=== PATIENT | male | born 1970 | race Caucasian/White ===

== ENCOUNTER 2023-05-24 23:15 | Emergency (ER) | payer OTHER ==
[~2023-05-24] VITALS: Ht 182.9 cm; Wt 113.4 kg
[2023-05-24 23:52] VITALS: BP 127/73; PULSE 92; RESP 17; TEMP 98; O2SAT 96
[2023-05-25] MEDS ORDERED: ONDANSETRON 4 MG/2 ML VIAL IVP ONE (02:50)
[2023-05-25] MEDS ORDERED: HYDROmorphone 1 MG/ML AMP IVP ONE (02:50)
[2023-05-25 03:05] LABS: BASOPHILS # (AUTO) 0.2 K/uL (0.00-0.22); BASOPHILS % (AUTO) 1.5 % (0.0-2.0); EOSINOPHILS # (AUTO) 0.3 K/uL (0-0.4); EOSINOPHILS % (AUTO) 2.1 % (0.0-4.0); HEMATOCRIT 43.4 % (36-52); HEMOGLOBIN 14.3 g/dL (12.0-18.0); LYMPHOCYTES # (AUTO) 2.3 K/uL (2.0-11.5); LYMPHOCYTES % (AUTO) 15.5 % (20.5-51.1); MEAN CORPUSCULAR HEMOGLOBIN 30 pg (27-31); MEAN CORPUSCULAR HGB CONC 33 g/dL (33-37); MEAN CORPUSCULAR VOLUME 90.3 fL (80-94); MONOCYTES # (AUTO) 0.9 K/uL (0.8-1.0); MONOCYTES % (AUTO) 5.9 % (1.7-9.3); PLATELET COUNT (AUTO) 240 K/uL (140-450); RED BLOOD CELL COUNT(AUTO) 4.81 MIL/uL (4.20-6.10); RED CELL DISTRIBUTION WIDTH 15.2 % (11.6-13.7); WHITE BLOOD COUNT (AUTO) 14.7 K/uL (4.8-10.8)
[2023-05-25 03:21] LABS: ANION GAP 14.7 (8-16); CALCIUM 9.1 mg/dL (8.5-10.1); CARBON DIOXIDE 25.9 mmol/L (21-32); POTASSIUM 3.6 mmol/L (3.5-5.1)
[2023-05-25 03:27] LABS: ALBUMIN 3.3 g/dL (3.4-5.0); BILIRUBIN,DIRECT 0.1 mg/dL (0.0-0.3); TOTAL BILIRUBIN 0.4 mg/dL (0.0-1.0); TOTAL PROTEIN, SERUM 8.4 g/dL (6.4-8.2)
[2023-05-25 05:57] VITALS: BP 134/72; PULSE 82; RESP 16; TEMP 97.4; O2SAT 98
[2023-05-25 07:02] LABS: APPEARANCE,URINE CLEAR (CLEAR); BILIRUBIN,URINE NEGATIVE (NEGATIVE); BLOOD, URINE TRACE-I (NEGATIVE); COLOR,URINE YELLOW (YELLOW); LEUKOCYTE ESTERASE ,URINE NEGATIVE (NEGATIVE); NITRITE, URINE NEGATIVE (NEGATIVE); PROTEIN,URINE 2+ (NEGATIVE); UGLUCOSE 3+ (NEGATIVE); UROBILINOGEN,URINE 0.2 EU/dL (0.2 - 1)
[2023-05-25] MEDS ORDERED: DOCU-299 PO (07:15)
[2023-05-25] MEDS ORDERED: ONDA-188 PO (07:15)
[2023-05-25] MEDS ORDERED: ACET-8905 PO (07:15)
[2023-05-25 07:20] LABS: BACTERIA,URINE 0-2 /HPF (None Seen); RBC,URINE 0-5 /HPF (0-5); SQUAMOUS EPITHELIAL CELL,UR 0-3 (FEW) /LPF (0-3 (FEW)); WBC,URINE 0-5 /HPF (0-5)
== END 2023-05-25 07:31 | disposition home or self-care (01) ==
LOC: MED 23:15
DX: R10.33 Periumbilical pain (principal); R11.2 Nausea with vomiting, unspecified; K59.00 Constipation, unspecified; R60.0 Localized edema; E11.9 Type 2 diabetes mellitus without complications; I10 Essential (primary) hypertension; Z98.890 Other specified postprocedural states; Z87.448 Personal history of other diseases of urinary system; Z79.899 Other long term (current) drug therapy
CPT/HCPCS: 36415; 74176; 80048; 80076; 81001; 82948; 83690; 85025; 96374; 96375; 99285; J1170; J2405

== ENCOUNTER 2023-06-01 06:29 | Inpatient (IN) | payer OTHER ==
[~2023-06-01] VITALS: Ht 182.9 cm; Wt 113.4 kg
[~2023-06-01 06:29] MED LIST: ACET-8905 PO; DOCU-299 PO; ONDA-188 PO
[2023-06-01 07:13] VITALS: BP 111/66; PULSE 85; RESP 16; TEMP 97.5; O2SAT 97
[2023-06-01] MEDS: PIPERACILLIN/TAZOBACTAM 3.375 GM in DEXT 5% MINI-BAG PLUS 50 ML IV ONE (09:40)
[2023-06-01 10:02] LABS: BASOPHILS # (AUTO) 0.2 K/uL (0.00-0.22); BASOPHILS % (AUTO) 1.5 % (0.0-2.0); EOSINOPHILS # (AUTO) 0.6 K/uL (0-0.4); EOSINOPHILS % (AUTO) 3.9 % (0.0-4.0); HEMATOCRIT 44.3 % (36-52); HEMOGLOBIN 14.6 g/dL (12.0-18.0); LYMPHOCYTES # (AUTO) 2.4 K/uL (2.0-11.5); LYMPHOCYTES % (AUTO) 17.2 % (20.5-51.1); MEAN CORPUSCULAR HEMOGLOBIN 30 pg (27-31); MEAN CORPUSCULAR HGB CONC 33 g/dL (33-37); MONOCYTES # (AUTO) 0.9 K/uL (0.8-1.0); MONOCYTES % (AUTO) 6.3 % (1.7-9.3); NEUTROPHILS # (AUTO) 10.1 K/uL (1.8-7.7); NEUTROPHILS % (AUTO) 71.1 % (42.2-75.2); PLATELET COUNT (AUTO) 210 K/uL (140-450); RED BLOOD CELL COUNT(AUTO) 4.86 MIL/uL (4.20-6.10); RED CELL DISTRIBUTION WIDTH 15.1 % (11.6-13.7); WHITE BLOOD COUNT (AUTO) 14.2 K/uL (4.8-10.8)
[2023-06-01 10:15] LABS: ANION GAP 15.2 (8-16); CALCIUM 9.3 mg/dL (8.5-10.1); POTASSIUM 4.2 mmol/L (3.5-5.1)
[2023-06-01 10:21] LABS: ALBUMIN 3.4 g/dL (3.4-5.0); BILIRUBIN,DIRECT 0.1 mg/dL (0.0-0.3); TOTAL BILIRUBIN 0.6 mg/dL (0.0-1.0); TOTAL PROTEIN, SERUM 8.4 g/dL (6.4-8.2)
[2023-06-01 10:23] LABS: LACTIC ACID 0.9 mmol/L (0.4-2.0)
[2023-06-01] MEDS ORDERED: PIPERACILLIN/TAZOBACTAM 3.375 GM VIAL IV ONE (10:32)
[2023-06-01] MEDS: HYDROcodone/APAP 10/325 MG 1 TAB TAB PO STA (10:50)
[2023-06-01] MEDS: NACL 0.9% 1,000 ML IV SCH (11:10)
[2023-06-01] MEDS ORDERED: ACETAMINOPHEN 325 MG TAB PO PRN (11:10)
[2023-06-01] MEDS ORDERED: DEXTROSE 50% 50 ML SYR IVP PRN (11:15)
[2023-06-01] MEDS: ONDANSETRON 4 MG/2 ML VIAL IVP ONE (12:14)
[2023-06-01] MEDS: BLOOD GLUCOSE MONITORING 1 DEV DEV FS SCH (12:16)
[2023-06-01 13:50] LABS: APPEARANCE,URINE CLEAR (CLEAR); BILIRUBIN,URINE NEGATIVE (NEGATIVE); BLOOD, URINE TRACE-I (NEGATIVE); COLOR,URINE YELLOW (YELLOW); LEUKOCYTE ESTERASE ,URINE NEGATIVE (NEGATIVE); NITRITE, URINE NEGATIVE (NEGATIVE); PROTEIN,URINE 1+ (NEGATIVE); UGLUCOSE 3+ (NEGATIVE); UROBILINOGEN,URINE 0.2 EU/dL (0.2 - 1)
[2023-06-01 14:10] LABS: BACTERIA,URINE 0-2 /HPF (None Seen); MUCUS,URINE 1+ /LPF (None Seen); RBC,URINE 0-5 /HPF (0-5); SQUAMOUS EPITHELIAL CELL,UR 0-3 (FEW) /LPF (0-3 (FEW)); WBC,URINE 0-5 /HPF (0-5)
[2023-06-01] MEDS: INSULIN LISPRO SLIDING SCALE 100 UNITS/ML VIAL SUBQ PRN (16:56)
[2023-06-01] MEDS ORDERED: VANCOMYCIN PER PHARMACY MC PRN (20:20)
[2023-06-01 21:35] VITALS: PULSE 83; RESP 20; O2SAT 95
[2023-06-01] MEDS: LACTULOSE 20 GM/30 ML UDC PO SCH (22:43)
[2023-06-01] MEDS: DOCUSATE SODIUM 250 MG GELCAP PO SCH (22:44)
[2023-06-01] MEDS: MORPHINE SULFATE 4 MG/ML SYR IVP PRN (22:48)
[2023-06-02] MEDS: ONDANSETRON 4 MG/2 ML VIAL IVP PRN (04:45)
[2023-06-02 05:26] LABS: BASOPHILS # (AUTO) 0.1 K/uL (0.00-0.22); BASOPHILS % (AUTO) 1.1 % (0.0-2.0); EOSINOPHILS # (AUTO) 0.4 K/uL (0-0.4); EOSINOPHILS % (AUTO) 3.7 % (0.0-4.0); HEMOGLOBIN 13.5 g/dL (12.0-18.0); LYMPHOCYTES # (AUTO) 1.9 K/uL (2.0-11.5); LYMPHOCYTES % (AUTO) 16.5 % (20.5-51.1); MEAN CORPUSCULAR HEMOGLOBIN 30 pg (27-31); MEAN CORPUSCULAR HGB CONC 33 g/dL (33-37); MEAN CORPUSCULAR VOLUME 91.3 fL (80-94); MONOCYTES # (AUTO) 0.8 K/uL (0.8-1.0); NEUTROPHILS # (AUTO) 8.1 K/uL (1.8-7.7); NEUTROPHILS % (AUTO) 71.7 % (42.2-75.2); PLATELET COUNT (AUTO) 170 K/uL (140-450); RED BLOOD CELL COUNT(AUTO) 4.49 MIL/uL (4.20-6.10); RED CELL DISTRIBUTION WIDTH 15.1 % (11.6-13.7); WHITE BLOOD COUNT (AUTO) 11.3 K/uL (4.8-10.8)
[2023-06-02 06:12] LABS: ALBUMIN 3.1 g/dL (3.4-5.0); ANION GAP 15.4 (8-16); CARBON DIOXIDE 24.7 mmol/L (21-32); CREATININE 3.6 mg/dL (0.6-1.3); POTASSIUM 4.1 mmol/L (3.5-5.1); TOTAL BILIRUBIN 0.7 mg/dL (0.0-1.0)
[2023-06-02] MEDS: VANCOMYCIN 1.25GM PREMIX 250 ML IV SCH (09:17)
[2023-06-02 09:40] VITALS: BP 110/61; PULSE 88; RESP 19; TEMP 96.7; O2SAT 95
[2023-06-02 09:43] VITALS: PULSE 88; RESP 19; O2SAT 95
[2023-06-02] MEDS: CRUSHER, PILL MC ONE (09:56)
[2023-06-02] MEDS ORDERED: GAUZE TP PRN (10:05)
[2023-06-02] MEDS: GAUZE TP SCH (10:29)
[2023-06-02] MEDS: HYDROcodone/APAP 5/325 MG 1 TAB TAB PO PRN (11:28)
[2023-06-02 16:00] VITALS: BP 112/68; PULSE 72; RESP 19; TEMP 97; O2SAT 96
[2023-06-02 20:00] VITALS: BP 122/66; PULSE 76; RESP 18; TEMP 98; O2SAT 96
[2023-06-03 04:00] VITALS: BP 111/60; PULSE 66; RESP 18; TEMP 98.1; O2SAT 95
[2023-06-03 07:04] LABS: BASOPHILS # (AUTO) 0.2 K/uL (0.00-0.22); BASOPHILS % (AUTO) 1.8 % (0.0-2.0); EOSINOPHILS # (AUTO) 0.4 K/uL (0-0.4); EOSINOPHILS % (AUTO) 4.5 % (0.0-4.0); HEMATOCRIT 38.4 % (36-52); HEMOGLOBIN 12.9 g/dL (12.0-18.0); LYMPHOCYTES % (AUTO) 21.6 % (20.5-51.1); MEAN CORPUSCULAR HEMOGLOBIN 30 pg (27-31); MEAN CORPUSCULAR HGB CONC 34 g/dL (33-37); MEAN CORPUSCULAR VOLUME 90.3 fL (80-94); MONOCYTES # (AUTO) 0.6 K/uL (0.8-1.0); MONOCYTES % (AUTO) 6.6 % (1.7-9.3); NEUTROPHILS # (AUTO) 6.2 K/uL (1.8-7.7); NEUTROPHILS % (AUTO) 65.5 % (42.2-75.2); PLATELET COUNT (AUTO) 172 K/uL (140-450); RED BLOOD CELL COUNT(AUTO) 4.25 MIL/uL (4.20-6.10); WHITE BLOOD COUNT (AUTO) 9.4 K/uL (4.8-10.8)
[2023-06-03 07:28] LABS: ANION GAP 14.4 (8-16); CARBON DIOXIDE 27.6 mmol/L (21-32); CREATININE 3.5 mg/dL (0.6-1.3)
[2023-06-03 08:00] VITALS: BP 120/74; PULSE 86; RESP 18; TEMP 97.1; O2SAT 96
[2023-06-03] MEDS: TAMSULOSIN 0.4 MG CAP PO SCH (09:25)
[2023-06-03] MEDS: VANCOMYCIN 1,000 MG in DEXTROSE 5% 250 ML IV SCH (13:06)
[2023-06-03 20:00] VITALS: BP 121/67; PULSE 76; RESP 20; TEMP 97.4; O2SAT 96
[2023-06-04] MEDS: cefTRIAXone 1,000 MG VIAL ONE (00:55)
[2023-06-04 04:00] VITALS: BP 116/70; PULSE 76; RESP 18; TEMP 97.1; O2SAT 97
[2023-06-04 06:11] LABS: BASOPHILS # (AUTO) 0.1 K/uL (0.00-0.22); BASOPHILS % (AUTO) 1.2 % (0.0-2.0); EOSINOPHILS # (AUTO) 0.3 K/uL (0-0.4); HEMATOCRIT 38.3 % (36-52); HEMOGLOBIN 12.8 g/dL (12.0-18.0); LYMPHOCYTES # (AUTO) 1.3 K/uL (2.0-11.5); LYMPHOCYTES % (AUTO) 12.4 % (20.5-51.1); MEAN CORPUSCULAR HEMOGLOBIN 30 pg (27-31); MEAN CORPUSCULAR HGB CONC 33 g/dL (33-37); MEAN CORPUSCULAR VOLUME 90.7 fL (80-94); MONOCYTES # (AUTO) 0.6 K/uL (0.8-1.0); MONOCYTES % (AUTO) 5.8 % (1.7-9.3); NEUTROPHILS # (AUTO) 8.3 K/uL (1.8-7.7); NEUTROPHILS % (AUTO) 77.6 % (42.2-75.2); PLATELET COUNT (AUTO) 182 K/uL (140-450); RED BLOOD CELL COUNT(AUTO) 4.22 MIL/uL (4.20-6.10); RED CELL DISTRIBUTION WIDTH 14.8 % (11.6-13.7); WHITE BLOOD COUNT (AUTO) 10.7 K/uL (4.8-10.8)
[2023-06-04 06:39] LABS: ANION GAP 14.6 (8-16); CARBON DIOXIDE 26.5 mmol/L (21-32); CREATININE 3.3 mg/dL (0.6-1.3); POTASSIUM 4.1 mmol/L (3.5-5.1)
[2023-06-04 08:48] VITALS: BP 126/72; PULSE 97; RESP 18; TEMP 97.7; O2SAT 97
[2023-06-04 08:53] VITALS: PULSE 97; RESP 18; O2SAT 97
[2023-06-04] MEDS: VANCOMYCIN 1.25GM PREMIX 250 ML IV SCH (11:08)
[2023-06-04] MEDS ORDERED: ACET-9525 PO (13:01)
[2023-06-04 14:13] VITALS: BP 128/73; PULSE 100; RESP 17; TEMP 98; O2SAT 98
[2023-06-04] MEDS: METOCLOPRAMIDE 10 MG/2 ML INJ VIAL IVP SCH (16:45)
[2023-06-04 20:00] VITALS: BP 123/81; PULSE 82; RESP 18; TEMP 97; O2SAT 96
[2023-06-05 04:00] VITALS: BP 152/90; PULSE 89; RESP 18; TEMP 98; O2SAT 94
[2023-06-05 07:25] LABS: MAGNESIUM 2.8 mg/dL (1.8-2.4)
[2023-06-05 07:40] LABS: ANION GAP 16.4 (8-16); CALCIUM 9.5 mg/dL (8.5-10.1); CARBON DIOXIDE 25.4 mmol/L (21-32); POTASSIUM 3.8 mmol/L (3.5-5.1)
[2023-06-05 08:00] VITALS: PULSE 89; RESP 17; O2SAT 96
[2023-06-05 12:00] VITALS: BP 107/44; PULSE 89; RESP 17; TEMP 97.1; O2SAT 96
[2023-06-05 20:00] VITALS: BP 130/68; PULSE 85; RESP 18; TEMP 97.3; O2SAT 95
[2023-06-06 04:00] VITALS: BP 124/74; PULSE 90; RESP 18; TEMP 97.9; O2SAT 94
[2023-06-06 05:59] LABS: BASOPHILS # (AUTO) 0.2 K/uL (0.00-0.22); BASOPHILS % (AUTO) 1.5 % (0.0-2.0); EOSINOPHILS # (AUTO) 0.4 K/uL (0-0.4); EOSINOPHILS % (AUTO) 3.6 % (0.0-4.0); HEMATOCRIT 39.1 % (36-52); HEMOGLOBIN 12.8 g/dL (12.0-18.0); LYMPHOCYTES # (AUTO) 1.8 K/uL (2.0-11.5); LYMPHOCYTES % (AUTO) 17.2 % (20.5-51.1); MEAN CORPUSCULAR HEMOGLOBIN 30 pg (27-31); MEAN CORPUSCULAR HGB CONC 33 g/dL (33-37); MEAN CORPUSCULAR VOLUME 91.7 fL (80-94); MONOCYTES # (AUTO) 0.8 K/uL (0.8-1.0); MONOCYTES % (AUTO) 7.9 % (1.7-9.3); NEUTROPHILS # (AUTO) 7.2 K/uL (1.8-7.7); NEUTROPHILS % (AUTO) 69.8 % (42.2-75.2); PLATELET COUNT (AUTO) 183 K/uL (140-450); RED BLOOD CELL COUNT(AUTO) 4.27 MIL/uL (4.20-6.10); RED CELL DISTRIBUTION WIDTH 14.9 % (11.6-13.7); WHITE BLOOD COUNT (AUTO) 10.3 K/uL (4.8-10.8)
[2023-06-06 08:00] VITALS: PULSE 89; RESP 17; O2SAT 93
[2023-06-06 08:34] LABS: ANION GAP 15.9 (8-16); CALCIUM 9.3 mg/dL (8.5-10.1); CARBON DIOXIDE 23.2 mmol/L (21-32); CREATININE 2.9 mg/dL (0.6-1.3); POTASSIUM 4.1 mmol/L (3.5-5.1)
[2023-06-06] MEDS ORDERED: VANCOMYCIN PER PHARMACY MC PRN (08:40)
[2023-06-06 12:00] VITALS: BP 123/61; PULSE 89; RESP 17; TEMP 97.8; O2SAT 93
[2023-06-06] MEDS: VANCOMYCIN 1.25GM PREMIX 250 ML IV SCH (12:47)
[2023-06-06 20:00] VITALS: BP 112/54; PULSE 82; RESP 18; TEMP 96.7; O2SAT 95
[2023-06-07 04:00] VITALS: BP 137/76; PULSE 94; RESP 18; TEMP 96.6; O2SAT 94
[2023-06-07 06:32] LABS: ANION GAP 15.2 (8-16); CARBON DIOXIDE 23.7 mmol/L (21-32); CREATININE 2.8 mg/dL (0.6-1.3); POTASSIUM 3.9 mmol/L (3.5-5.1)
[2023-06-07 08:00] VITALS: BP 120/75; PULSE 81; PULSE 82; RESP 18; TEMP 96.4; O2SAT 95; O2SAT 97
[2023-06-07 08:51] LABS: BASOPHILS # (AUTO) 0.2 K/uL (0.00-0.22); BASOPHILS % (AUTO) 1.8 % (0.0-2.0); EOSINOPHILS # (AUTO) 0.4 K/uL (0-0.4); EOSINOPHILS % (AUTO) 4.1 % (0.0-4.0); HEMATOCRIT 37.5 % (36-52); HEMOGLOBIN 12.3 g/dL (12.0-18.0); LYMPHOCYTES # (AUTO) 1.6 K/uL (2.0-11.5); LYMPHOCYTES % (AUTO) 17.1 % (20.5-51.1); MEAN CORPUSCULAR HEMOGLOBIN 30 pg (27-31); MEAN CORPUSCULAR HGB CONC 33 g/dL (33-37); MEAN CORPUSCULAR VOLUME 91.6 fL (80-94); MONOCYTES # (AUTO) 0.8 K/uL (0.8-1.0); MONOCYTES % (AUTO) 9.1 % (1.7-9.3); NEUTROPHILS # (AUTO) 6.3 K/uL (1.8-7.7); NEUTROPHILS % (AUTO) 67.9 % (42.2-75.2); PLATELET COUNT (AUTO) 184 K/uL (140-450); RED BLOOD CELL COUNT(AUTO) 4.09 MIL/uL (4.20-6.10); WHITE BLOOD COUNT (AUTO) 9.3 K/uL (4.8-10.8)
[2023-06-07] MEDS: SENNA 8.6 MG TAB PO SCH (12:18)
[2023-06-07] MEDS: ERYTHROMYCIN 100 MG in NACL 0.9% 100 ML IV SCH (12:19)
[2023-06-07 12:56] LABS: INR 1.03 (0.8-1.2); PARTIAL THROMBOPLASTIN TIME 28.4 secs (22-35.6); PROTHROMBIN TIME 10.8 secs (10.8-13.4)
[2023-06-07] MEDS: LACTULOSE 20 GM/30 ML UDC PO SCH (13:00)
[2023-06-07 16:01] VITALS: O2SAT 98
[2023-06-07 20:00] VITALS: BP 131/68; PULSE 77; RESP 18; TEMP 97.6; O2SAT 98
[2023-06-08 04:00] VITALS: BP 141/68; PULSE 86; RESP 18; TEMP 97.2; O2SAT 98
[2023-06-08 06:11] LABS: BASOPHILS # (AUTO) 0.1 K/uL (0.00-0.22); BASOPHILS % (AUTO) 1.5 % (0.0-2.0); EOSINOPHILS # (AUTO) 0.5 K/uL (0-0.4); EOSINOPHILS % (AUTO) 5.9 % (0.0-4.0); HEMATOCRIT 38.8 % (36-52); HEMOGLOBIN 12.9 g/dL (12.0-18.0); LYMPHOCYTES # (AUTO) 1.3 K/uL (2.0-11.5); MEAN CORPUSCULAR HEMOGLOBIN 30 pg (27-31); MEAN CORPUSCULAR HGB CONC 33 g/dL (33-37); MEAN CORPUSCULAR VOLUME 90.2 fL (80-94); MONOCYTES # (AUTO) 0.6 K/uL (0.8-1.0); MONOCYTES % (AUTO) 7.6 % (1.7-9.3); NEUTROPHILS # (AUTO) 5.4 K/uL (1.8-7.7); PLATELET COUNT (AUTO) 201 K/uL (140-450); RED CELL DISTRIBUTION WIDTH 14.9 % (11.6-13.7); WHITE BLOOD COUNT (AUTO) 7.9 K/uL (4.8-10.8)
[2023-06-08 06:29] LABS: ANION GAP 12.6 (8-16); CALCIUM 9.1 mg/dL (8.5-10.1); CARBON DIOXIDE 26.6 mmol/L (21-32); CREATININE 2.3 mg/dL (0.6-1.3); POTASSIUM 4.2 mmol/L (3.5-5.1)
[2023-06-08] MEDS: fentaNYL citrate 0.05 MG/ML VIAL ONE (07:38)
[2023-06-08] MEDS: diphenhydrAMINE 50 MG/ML VIAL ONE (07:38)
[2023-06-08] MEDS: MIDAZOLAM 2 MG/2 ML VIAL ONE (07:39)
[2023-06-08 08:00] VITALS: PULSE 85; RESP 18; O2SAT 97
[2023-06-08] MEDS: MIDAZOLAM 2 MG/2 ML VIAL IVP ONE (08:54)
[2023-06-08] MEDS: fentaNYL citrate 0.05 MG/ML VIAL IVP ONE (08:55)
[2023-06-08] MEDS: VANCOMYCIN 1,000 MG in DEXTROSE 5% 250 ML IV SCH (11:06)
[2023-06-08 16:00] VITALS: BP 121/53; PULSE 85; RESP 18; TEMP 97.6; O2SAT 97
[2023-06-08 21:01] VITALS: BP 121/53; PULSE 85; RESP 18; TEMP 97.6
== END 2023-06-08 22:00 | disposition home health service (06) | DRG 344 ==
LOC: MED 06:29 → MTU 11:11
PROVIDERS: ADMIT Internal Medicine; ATTEND Internal Medicine
PROC: B548ZZA Ultrasonography of Superior Vena Cava, Guidance (ICD-10-PCS; 2023-06-08)
PROC: 0DJ08ZZ Inspection of Upper Intestinal Tract, Via Natural or Artificial Opening Endoscopic (ICD-10-PCS; principal; 2023-06-08 08:00)
PROC: 02HV33Z Insertion of Infusion Device into Superior Vena Cava, Percutaneous Approach (ICD-10-PCS; 2023-06-08 08:00)
DX: E11.69 Type 2 diabetes mellitus with other specified complication (principal); M86.8X7 Other osteomyelitis, ankle and foot; N17.0 Acute kidney failure with tubular necrosis; R65.11 Systemic inflammatory response syndrome (SIRS) of non-infectious origin with acute organ dysfunction; E11.621 Type 2 diabetes mellitus with foot ulcer; E27.8 Other specified disorders of adrenal gland; I13.0 Hypertensive heart and chronic kidney disease with heart failure and stage 1 through stage 4 chronic kidney disease, or unspecified chronic kidney disease; L97.419 Non-pressure chronic ulcer of right heel and midfoot with unspecified severity; I50.9 Heart failure, unspecified; N18.4 Chronic kidney disease, stage 4 (severe); N13.30 Unspecified hydronephrosis; E11.22 Type 2 diabetes mellitus with diabetic chronic kidney disease; E11.40 Type 2 diabetes mellitus with diabetic neuropathy, unspecified; K59.00 Constipation, unspecified; E11.51 Type 2 diabetes mellitus with diabetic peripheral angiopathy without gangrene; L89.899 Pressure ulcer of other site, unspecified stage; K29.70 Gastritis, unspecified, without bleeding; E11.65 Type 2 diabetes mellitus with hyperglycemia; K31.7 Polyp of stomach and duodenum; K20.90 Esophagitis, unspecified without bleeding; Z90.49 Acquired absence of other specified parts of digestive tract; Z89.512 Acquired absence of left leg below knee; Z89.421 Acquired absence of other right toe(s); Z87.442 Personal history of urinary calculi; N20.0 Calculus of kidney
CPT/HCPCS: 36415; 71045; 73630; 76705; 80048; 80053; 80076; 80202; 81001; 82150; 82948; 83605; 83690; 83735; 83880; 84100; 84484; 85025; 85610; 85651; 85730; 86140; 87040; 87081; 87086; 93005; 96374; 96375; 99285; J0696; J1200; J1364; J1815; J2250; J2270; J2405; J2543; J2765; J3010; J3370; J3372; J7030; J7060; Q0092

== ENCOUNTER 2023-08-12 18:44 | Emergency (ER) | payer OTHER ==
[~2023-08-12] VITALS: Ht 182.9 cm; Wt 97.5 kg
[~2023-08-12 18:44] MED LIST changes: -ACET-8905 PO; +ACET-9525 PO
[2023-08-12 19:06] VITALS: BP 134/81; PULSE 77; RESP 19; TEMP 97.1; O2SAT 98
[2023-08-12 21:06] VITALS: O2SAT 98
[2023-08-12 22:14] LABS: BASOPHILS % (AUTO) 0.2 % (0.0-2.0); EOSINOPHILS # (AUTO) 0.3 K/uL (0-0.4); EOSINOPHILS % (AUTO) 2.5 % (0.0-4.0); HEMATOCRIT 41.1 % (36-52); HEMOGLOBIN 13.7 g/dL (12.0-18.0); LYMPHOCYTES # (AUTO) 2.3 K/uL (2.0-11.5); LYMPHOCYTES % (AUTO) 21.7 % (20.5-51.1); MEAN CORPUSCULAR HEMOGLOBIN 30 pg (27-31); MEAN CORPUSCULAR HGB CONC 33 g/dL (33-37); MEAN CORPUSCULAR VOLUME 89.5 fL (80-94); MONOCYTES # (AUTO) 0.8 K/uL (0.8-1.0); MONOCYTES % (AUTO) 7.3 % (1.7-9.3); NEUTROPHILS # (AUTO) 7.1 K/uL (1.8-7.7); NEUTROPHILS % (AUTO) 68.3 % (42.2-75.2); PLATELET COUNT (AUTO) 179 K/uL (140-450); RED CELL DISTRIBUTION WIDTH 14.2 % (11.6-13.7); WHITE BLOOD COUNT (AUTO) 10.4 K/uL (4.8-10.8)
[2023-08-12 22:25] LABS: ANION GAP 14.1 (8-16); CALCIUM 9.5 mg/dL (8.5-10.1); CARBON DIOXIDE 29.9 mmol/L (21-32); CREATININE 2.9 mg/dL (0.6-1.3)
[2023-08-12 22:31] LABS: ALBUMIN 3.5 g/dL (3.4-5.0); BILIRUBIN,DIRECT 0.1 mg/dL (0.0-0.3); TOTAL BILIRUBIN 0.5 mg/dL (0.0-1.0)
[2023-08-12] MEDS: PHENAZOPYRIDINE 100 MG TAB PO ONE (22:40)
[2023-08-12] MEDS ORDERED: CEPH-588 PO (23:06)
[2023-08-12 23:08] LABS: APPEARANCE,URINE CLEAR (CLEAR); BILIRUBIN,URINE NEGATIVE (NEGATIVE); BLOOD, URINE 3+ (NEGATIVE); COLOR,URINE YELLOW (YELLOW); LEUKOCYTE ESTERASE ,URINE NEGATIVE (NEGATIVE); NITRITE, URINE NEGATIVE (NEGATIVE); PROTEIN,URINE 1+ (NEGATIVE); UGLUCOSE 3+ (NEGATIVE); UROBILINOGEN,URINE 0.2 EU/dL (0.2 - 1)
[2023-08-12 23:15] LABS: BACTERIA,URINE 10-30 (MOD) /HPF (None Seen); MUCUS,URINE 1+ /LPF (None Seen); RBC,URINE 11-20 (MOD) /HPF (0-5); SQUAMOUS EPITHELIAL CELL,UR 0-3 (FEW) /LPF (0-3 (FEW)); WBC,URINE 0-5 /HPF (0-5)
== END 2023-08-12 23:54 | disposition home or self-care (01) ==
LOC: MED 18:44
DX: T83.122A Displacement of indwelling ureteral stent, initial encounter (principal); E11.9 Type 2 diabetes mellitus without complications; I10 Essential (primary) hypertension; Z87.448 Personal history of other diseases of urinary system; Z98.890 Other specified postprocedural states; Z79.899 Other long term (current) drug therapy
CPT/HCPCS: 36415; 72170; 74018; 80048; 80076; 81001; 85025; 99284

== ENCOUNTER 2023-09-04 20:22 | Emergency (ER) | payer OTHER ==
[~2023-09-04] VITALS: Ht 182.9 cm; Wt 113.4 kg
[~2023-09-04 20:22] MED LIST changes: +CEPH-588 PO
[2023-09-04 20:25] VITALS: BP 128/84; PULSE 82; RESP 18; TEMP 97.8; O2SAT 98
[2023-09-04 21:18] LABS: BASOPHILS # (AUTO) 0.1 K/uL (0.00-0.22); EOSINOPHILS # (AUTO) 0.3 K/uL (0-0.4); EOSINOPHILS % (AUTO) 2.3 % (0.0-4.0); HEMATOCRIT 46.3 % (36-52); HEMOGLOBIN 15.3 g/dL (12.0-18.0); LYMPHOCYTES # (AUTO) 1.6 K/uL (2.0-11.5); LYMPHOCYTES % (AUTO) 12.7 % (20.5-51.1); MEAN CORPUSCULAR HEMOGLOBIN 29 pg (27-31); MEAN CORPUSCULAR HGB CONC 33 g/dL (33-37); MONOCYTES # (AUTO) 0.5 K/uL (0.8-1.0); MONOCYTES % (AUTO) 4.2 % (1.7-9.3); NEUTROPHILS % (AUTO) 79.8 % (42.2-75.2); PLATELET COUNT (AUTO) 235 K/uL (140-450); RED CELL DISTRIBUTION WIDTH 14.8 % (11.6-13.7); WHITE BLOOD COUNT (AUTO) 12.6 K/uL (4.8-10.8)
[2023-09-04] MEDS: KETOROLAC 30 MG/ML VIAL IVP ONE (21:21)
[2023-09-04] MEDS: NACL 0.9% 1,000 ML IV SCH (21:22)
[2023-09-04] MEDS: ONDANSETRON 4 MG/2 ML VIAL IVP ONE (21:22)
[2023-09-04 21:25] LABS: ANION GAP 12.4 (8-16); CALCIUM 9.2 mg/dL (8.5-10.1); CARBON DIOXIDE 30.1 mmol/L (21-32); CREATININE 2.6 mg/dL (0.6-1.3); POTASSIUM 4.5 mmol/L (3.5-5.1)
[2023-09-04 21:32] LABS: ALBUMIN 3.7 g/dL (3.4-5.0); BILIRUBIN,DIRECT 0.1 mg/dL (0.0-0.3); TOTAL BILIRUBIN 0.6 mg/dL (0.0-1.0); TOTAL PROTEIN, SERUM 7.8 g/dL (6.4-8.2)
[2023-09-04] MEDS ORDERED: MAGN296S70 PO (22:45)
[2023-09-04 22:55] VITALS: BP 128/84; PULSE 82; RESP 18; TEMP 97.8; O2SAT 98
== END 2023-09-04 22:55 | disposition home or self-care (01) ==
LOC: MED 20:22
DX: R10.13 Epigastric pain (principal); K59.00 Constipation, unspecified; R11.2 Nausea with vomiting, unspecified; E11.9 Type 2 diabetes mellitus without complications; I10 Essential (primary) hypertension; N28.9 Disorder of kidney and ureter, unspecified
CPT/HCPCS: 36415; 74176; 80048; 80076; 81002; 83690; 85025; 96361; 96374; 96375; 99285; J1885; J2405; J7030